=== PATIENT | male | born 1995 | race Native Hawaiian/Other Pacific Islander ===

== ENCOUNTER 2018-01-28 11:21 | Emergency (ER) | payer OTHER ==
[~2018-01-28] VITALS: Ht 167.6 cm; Wt 68.0 kg
[2018-01-28 11:29] VITALS: TEMP 98.1
[2018-01-28 12:11] LABS: PLATELET COUNT 185 K/uL (142-355)
[2018-01-28 12:22] LABS: POTASSIUM 3.9 mmol/L (3.6-5.2)
[2018-01-28 12:54] VITALS: BP 127/68
== END 2018-01-28 12:54 | disposition home or self-care (01) ==
LOC: ED 11:21
DX: J02.9 Acute pharyngitis, unspecified (principal); B27.90 Infectious mononucleosis, unspecified without complication
CPT/HCPCS: 36415; 80053; 85027; 87081; 87880; 99282